=== PATIENT | female | born 1945 | race Caucasian/White ===

== ENCOUNTER 2019-08-24 14:11 | Emergency (ER) | payer OTHER ==
[~2019-08-24] VITALS: Ht 157.5 cm; Wt 76.2 kg
[~2019-08-24 14:11] MED LIST: COZAAR; COZAAR50 MG; GABAPENTIN300 MG PO; HUMULIN 70/30 V10 ML SQ; INTESTINEX1 CA1 PO; LANOXIN125 MCG PO; LIPITOR 10 MG; LOSARTAN POTASS50 MG PO; Levsin/Sl 0.125 MG TAB.SUBL SL; METFORMIN HCL1000 MG PO; OXYC1TAB9 PO; Protonix PO; RYZOLT PO; SYNTHROID125 MCG PO
[2019-08-24] MEDS ORDERED: ACID REDUCER20 M1 (15:10)
[2019-08-24] MEDS ORDERED: LANOXIN125 MCG (15:11)
[2019-08-24] MEDS ORDERED: XARELTO20 MG (15:11)
[2019-08-24] MEDS ORDERED: NITROGLYCERIN0.4 MG (15:11)
== END 2019-08-24 22:55 | disposition home or self-care (01) ==
LOC: ER 14:11
DX: K29.60 Other gastritis without bleeding (principal)

== ENCOUNTER 2021-08-06 16:10 | Emergency (ER) | payer OTHER ==
[~2021-08-06] VITALS: Ht 157.5 cm; Wt 79.4 kg
[~2021-08-06 16:10] MED LIST changes: +ACID REDUCER20 M1; +LANOXIN125 MCG; +NITROGLYCERIN0.4 MG; +XARELTO20 MG
[2021-08-07] MEDS ORDERED: CEFDINIR300 MG PO (05:14)
[2021-08-07] MEDS ORDERED: PEPCID AC20 MG PO (05:14)
== END 2021-08-07 05:22 | disposition home or self-care (01) ==
LOC: ER 16:10
DX: R68.83 Chills (without fever) (principal); R41.3 Other amnesia; R11.2 Nausea with vomiting, unspecified

== ENCOUNTER 2022-08-07 18:58 | Inpatient (IN) | payer OTHER ==
[~2022-08-07] VITALS: Ht 157.5 cm; Wt 75.3 kg
[~2022-08-07 18:58] MED LIST changes: +CEFDINIR300 MG PO; +PEPCID AC20 MG PO
--- NOTE | 2022-08-07 19:40 | NUR ---
SE RECIBE PTE ALERTA ORIENTADA X3.PTE REFIERE TENER DOLOR DE ESPALDA BRITTNEY DESDE HOY EN LA MANANA. SE HERVE S/V Y SE UBICA.
--- NOTE | 2022-08-07 22:20 | NUR ---
SE HERVE MUESTRAS DE LAB HERON ORDEN MEDICA Y BAJO MEDIDAS ASEPTICAS. SE ADMINITRAN MEDS HERON ORDEN MEDICA Y SE ORIENTA SOBRE LOS MISMOS. PTE PENDIENTE A RESULTADOS.
== END 2022-08-10 20:32 | disposition home or self-care (01) | DRG 690 ==
LOC: ER 18:58 → SURG 23:52
PROVIDERS: ADMIT Internal Medicine; ATTEND Internal Medicine
PROC: BW21ZZZ Computerized Tomography (CT Scan) of Abdomen and Pelvis (ICD-10-PCS; principal; 2022-08-07)
PROC: B32 Imaging, Upper Arteries, Computerized Tomography (CT Scan) (ICD-10-PCS; 2022-08-08)
DX: N39.0 Urinary tract infection, site not specified (principal); E78.5 Hyperlipidemia, unspecified; I48.91 Unspecified atrial fibrillation; G62.89 Other specified polyneuropathies; I10 Essential (primary) hypertension; Z20.822 Contact with and (suspected) exposure to COVID-19; E03.9 Hypothyroidism, unspecified
CPT/HCPCS: 71275

== ENCOUNTER 2023-01-17 20:39 | Emergency (ER) | payer OTHER ==
[~2023-01-17] VITALS: Ht 162.6 cm; Wt 70.8 kg
[2023-01-17] MEDS ORDERED: SYNJARDY 12.5-1 EACH PO (20:53)
[2023-01-17] MEDS ORDERED: HUMALOG100 UNIT/2 SQ (20:54)
[2023-01-17] MEDS ORDERED: RYTHMOL SR225 MG PO (20:56)
[2023-01-17] MEDS ORDERED: ATORVASTATIN CA20 MG PO (20:56)
[2023-01-17] MEDS ORDERED: PANTOPRAZOLE SO20 MG PO (20:56)
[2023-01-17] MEDS ORDERED: VAZALORE81 MG PO (20:56)
== END 2023-01-18 00:14 | disposition home or self-care (01) ==
LOC: ER 20:39
DX: M25.531 Pain in right wrist (principal); M10.9 Gout, unspecified

== ENCOUNTER 2024-06-05 00:09 | Emergency (ER) | payer OTHER ==
[~2024-06-05] VITALS: Ht 149.9 cm; Wt 79.4 kg
[~2024-06-05 00:09] MED LIST changes: +ATORVASTATIN CA20 MG PO; +HUMALOG100 UNIT/2 SQ; +PANTOPRAZOLE SO20 MG PO; +RYTHMOL SR225 MG PO; +SYNJARDY 12.5-1 EACH PO; +VAZALORE81 MG PO
[2024-06-05] MEDS ORDERED: ACETAMINOPHEN 500 MG GEL..CAP PO STA (01:42)
[2024-06-05 02:06] LABS: HEMATOCRIT 40.5 % (36.0-45.00); HEMOGLOBIN 13.4 g/dL (12.0-15.00); MEAN CELL VOLUME 90.7 fL (80.00-100.00); MEAN CORPUSCULAR HEMOGLOBIN 29.9 pg (27.00-32.0); PLATELET COUNT 169 K/uL (150-450); RED BLOOD COUNT 4.47 M/uL (4.00-6.00); RED CELL DISTRIBUTION WIDTH 13.9 % (11.5-14.5)
[2024-06-05 02:28] LABS: INR 1.31; PARTIAL THROMBOPLASTIN TIME 30.8 SECONDS (22.0-34.0)
[2024-06-05 02:51] LABS: ALBUMIN 3.7 gm/dL (3.4-5.0); BILIRUBIN TOTAL 0.91 mg/dL (0.3-1.2); CALCIUM 8.6 mg/dL (8.5-10.1); CREATININE SERUM 0.9 mg/dL (0.55-1.02); GLOBULINA 3.4 G/DL (2.4-3.5); POTASSIUM 5.19 mEq/L (3.5-5.1); TOTAL PROTEIN 7.1 gm/dL (6.4-8.2)
[2024-06-05 03:09] LABS: GFR 60.4
[2024-06-05 05:06] LABS: URINE APPEARANCE Clear; URINE BILIRRUBIN Negative (NEGATIVE); URINE BLOOD Negative; URINE COLOR Yellow; URINE GLUCOSE Negative (NEGATIVE); URINE KETONE Negative (NEGATIVE); URINE LEUKOCYTE Trace; URINE NITRATE Negative; URINE PROTEIN Trace (NEGATIVE); URINE UROBILINOGEN 0.2 E.U./dl
[2024-06-05 05:09] LABS: URINE BACTERIA 65.4 uL (0.0-1933); URINE RBC 3.3 uL (0.0-20.8); URINE WBC 15.4 uL (0.0-23.2)
[2024-06-05 05:10] LABS: URINE CAST 0.15 uL (0.0-1.40)
[2024-06-05] MEDS ORDERED: HUMALOG100 UNIT/2 SUBCUTANEO (05:26)
[2024-06-05] MEDS ORDERED: SYNTHROID125 MCG PO (05:26)
[2024-06-05] MEDS ORDERED: SYNJARDY 12.5-1 EACH PO (05:26)
== END 2024-06-05 05:38 ==
LOC: ER 00:11
PROVIDERS: General Practice
DX: S05.8X1A Other injuries of right eye and orbit, initial encounter (principal); W19.XXXA Unspecified fall, initial encounter; Y93.89 Activity, other specified; Y92.89 Other specified places as the place of occurrence of the external cause; Y99.8 Other external cause status; R42 Dizziness and giddiness; I10 Essential (primary) hypertension

== ENCOUNTER 2025-04-06 22:59 | Emergency (ER) | payer OTHER ==
[~2025-04-06] VITALS: Ht 149.9 cm; Wt 78.9 kg
[~2025-04-06 22:59] MED LIST changes: +HUMALOG100 UNIT/2 SUBCUTANEO
[2025-04-06 23:07] VITALS: BP 119/81; O2SAT 97
[2025-04-06] MEDS ORDERED: LANTUS SOL100 UNIT/1 (23:14)
[2025-04-07] MEDS ORDERED: KETOROLAC TROMETHAMINE 10 MG TABLET PO STA (02:34)
== END 2025-04-07 02:50 | disposition home or self-care (01) ==
LOC: ER 22:59
DX: S80.01XA Contusion of right knee, initial encounter (principal); W45.8XXA Other foreign body or object entering through skin, initial encounter; Y93.89 Activity, other specified; Y92.89 Other specified places as the place of occurrence of the external cause